=== PATIENT | female | born 1960 | race Caucasian/White ===

== ENCOUNTER 2017-02-04 05:24 | Day surgery (SDC) | payer OTHER ==
[~2017-02-04] VITALS: Ht 152.4 cm; Wt 78.3 kg
[2017-02-04 06:21] VITALS: Ht 152.4 cm; Wt 78.3 kg
[2017-02-04] MEDS ORDERED: OMEP20CA16 PO (06:28)
[2017-02-04] MEDS ORDERED: BENA10TA48 PO (06:28)
[2017-02-04] MEDS ORDERED: MTF1000T PO (06:28)
[2017-02-04 06:58] VITALS: BP 175/82; PULSE 94; RESP 18
[2017-02-04 07:45] VITALS: BP 124/58; PULSE 86; RESP 18
[2017-02-04] MEDS ORDERED: MIDAZOLAM 1 MG/ML 2 ML INJ ONE ×3 (07:47→07:59)
[2017-02-04] MEDS ORDERED: FENTAnyl 50 MCG/ML VIAL ONE (07:54)
[2017-02-04 08:40] VITALS: BP 121/60; PULSE 88; RESP 18
--- NOTE | 2017-02-04 15:21 | GILP ---
DATE OF PROCEDURE: 02/04/2017 NAME OF PROCEDURES: 1. Esophagogastroduodenoscopy and biopsy. 2. Colonoscopy. SURGEON: Анна Trujillo MD PREOPERATIVE DIAGNOSES: 1. Abdominal pain. 2. Chronic heartburn. 3. Change in bowel habit. POSTOPERATIVE DIAGNOSES: 1. Gastroesophageal reflux disease. 2. Gastritis with erosions. 3. Gastric mucosal biopsies were taken for Helicobacter pylori test. 4. Colonoscopy all the way to the cecum. 5. Internal hemorrhoids. 6. No colon neoplasm was identified. INDICATION FOR THE PROCEDURE: Ms. Bernadette Gallego is a 57-year-old female patient who had upper abdominal pain and chronic heartburn, not responding to therapy. The patient also noticed a change in the bowel habit. The patient was scheduled for endoscopy and colonoscopy for further evaluation. The procedures and possible complications are well explained to the patient. The patient understood and consented to the procedure. DESCRIPTION OF PROCEDURE: Under the influence of fentanyl and Versed, the gastroscope was carefully introduced into the esophagus. Under direct vision, it was advanced to the stomach and through the pylorus into the duodenal bulb and descending duodenum. FINDINGS: ESOPHAGUS: The patient had gastroesophageal reflux disease. STOMACH: She had gastritis with erosions. Gastric mucosal biopsies were taken for H. pylori test. DUODENUM: Normal. The colonoscope was carefully introduced in the rectum and under direct vision, it was advanced all the way to the cecum. FINDINGS: The patient had internal hemorrhoids. No colon neoplasm was identified. The patient tolerated the procedures very well and there was no complication from the procedures. A t the end of the procedures, she was awake with stable vital signs and she was discharged home to [facility] care of her family. IMPRESSION: 1. Gastroesophageal reflux disease. 2. Gastritis with erosions. 3. Gastric mucosal biopsies were taken for Helicobacter pylori test. 4. Colonoscopy all the way to the cecum. 5. Internal hemorrhoids. 6. No colon neoplasm was identified. PLAN: 1. Continue omeprazole. 2. Add Zantac 300 mg p.o. at bedtime. 3. High fiber diet. 4. Await Helicobacter pylori test report. Dictated By: АННА WILEY/NASH Conf#: [id number] DID#: [id number]
== END 2017-02-04 11:17 | disposition home or self-care (01) ==
LOC: GIL 05:24
PROVIDERS: ATTEND Internal Medicine Gastroenterology
DX: R19.4 Change in bowel habit (principal); K21.9 Gastro-esophageal reflux disease without esophagitis; K29.60 Other gastritis without bleeding; K64.8 Other hemorrhoids; I10 Essential (primary) hypertension; E11.9 Type 2 diabetes mellitus without complications
CPT/HCPCS: 43239; 45378; 82962; 87081; J2250; J3010; Z7610